=== PATIENT | male | born 1990 | race American Indian/Alaskan Native ===

== ENCOUNTER 2017-02-13 12:34 | Emergency (ER) | payer SELFPAY ==
[2017-02-13 13:10] VITALS: BP 129/73; PULSE 73; RESP 16; TEMP 98; O2SAT 97
--- NOTE | 2017-02-13 13:35 | C.PDOC ---
History Of Present Illness 26 year old male presents to ED with complaints of positionally and digitally reproducible parasternal chest pain for the past 3 weeks. 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 Pain is non-radiating. Denies shortness of breath, palpitations, or fever. No other complaints. Time Seen by Provider: 02/13/17 13:13 Chief Complaint (Nursing): Chest Pain History Per: Patient History/Exam Limitations: no limitations Onset/Duration Of Symptoms: Days (3 weeks) Current Symptoms Are (Timing): Still Present Quality: "Pain" Associated Symptoms: denies: Nausea, Dyspnea, Diaphoresis, Syncope Modifying Factors: None Exacerbating Factors: Movement Alleviating Factors: None Recent travel outside of the [place]: No Additional History Per: Patient Past Medical History Reviewed: Historical Data, Nursing Documentation, Vital Signs Vital Signs: Last Vital Signs Temp 98.0 F 02/13/17 13:07 Pulse 73 02/13/17 13:07 Resp 16 02/13/17 13:07 BP 129/73 02/13/17 13:07 Pulse Ox 97 02/13/17 13:36 Family History: States: Unknown Family Hx - Social History Hx Alcohol Use: No Hx Substance Use: No - Immunization History Hx Tetanus Toxoid Vaccination: Yes Hx Influenza Vaccination: No Hx Pneumococcal Vaccination: No Review Of Systems Except As Marked, All Systems Reviewed And Found Negative. Constitutional: Negative for: Fever, Chills Cardiovascular: Positive for: Chest Pain. Negative for: Palpitations, Edema, Light Headedness Respiratory: Negative for: Cough, Shortness of Breath Gastrointestinal: Negative for: Nausea, Vomiting Neurological: Negative for: Headache, Dizziness Physical Exam - Physical Exam Appears: Non-toxic, No Acute Distress Skin: Normal Color, Warm, Dry, No Rash Head: Atraumatic, Normacephalic Eye(s): bilateral: Normal Inspection Oral Mucosa: Moist Neck: Supple Chest: Symmetrical, No Deformity, Tenderness (positionally and digitally reproducible parasternal tenderness, no substernal tenderness), No Ecchymosis Cardiovascular: Rhythm Regular, No Murmur Respiratory: Normal Breath Sounds, No Rales, No Rhonchi Gastrointestinal/Abdominal: Soft, No Tenderness Extremity: Normal ROM, No Pedal Edema Neurological/Psych: Oriented x3, Normal Speech, Normal Cognition ED Course And Treatment ECG: Interpreted By Me ECG Rhythm: Sinus Rhythm ECG Interpretation: Normal Rate From EC O2 Sat by Pulse Oximetry: 97 Pulse Ox Interpretation: Normal Medical Decision Making Medical Decision Making: positionally and digitally reproducable b/l parasternal chest discomfort lifts heavy luggage as a business intelligence etl developer not changed with sitting/laying to consider pericarditis. Disposition Doctor Will See Patient In The: Office Counseled Patient/Family Regarding: Studies Performed, Diagnosis - Disposition Referrals: [facility] [Outside] [facility] [email or web address] [facility] [Outside] Disposition: HOME/ ROUTINE Disposition Time: 13:35 Condition: GOOD Additional Instructions: motrin 400-600 mg every 6 hours as needed for chest discomfort ice packs to chest 1/2 hour per hour, nothing hot, no hot showers. no heavy lifting for 1 week. Instructions: Costochondritis (ED) Forms: [facility] ([place]se) - Clinical Impression Clinical Impression: Chest discomfort - Scribe Statement The provider has reviewed the documentation as recorded by the Scribe Tramaine Hardin All medical record entries made by the Scribe were at my direction and personally dictated by me. I have reviewed the chart and agree that the record accurately reflects my personal performance of the history, physical exam, medical decision making, and the department course for this patient. I have also personally directed, reviewed, and agree with the discharge instructions and disposition.
--- NOTE | 2017-02-14 19:08 | CARD ---
APPROVED REPORT EKG Measurement Heart [id number] <Conclusion> Normal sinus rhythm Normal ECG
== END 2017-02-13 13:55 | disposition home or self-care (01) ==
LOC: C.ER 12:34
DX: R07.89 Other chest pain (principal)

== ENCOUNTER 2017-11-18 14:42 | Emergency (ER) | payer OTHER ==
[2017-11-18 14:55] VITALS: BMI 24.7
[2017-11-18 14:58] VITALS: BP 125/79; PULSE 62; RESP 18; TEMP 98.3; O2SAT 98
--- NOTE | 2017-11-18 15:25 | C.PDOC ---
History Of Present Illness 27 year old male presents to the ED for evaluation of swelling to his lower lip which began three days ago. Patient notes crusty yellow discharge from the area. Patient also reports 4-day history of penile discharge and admits to having unprotected sexual intercourse 3 weeks ago. Patient notes he was in [place] during this past week, from 11/12 to 11/17. He denies fever, chills. Time Seen by Provider: 11/18/17 15:21 Chief Complaint (Nursing): Abnormal Skin Integrity History Per: Patient History/Exam Limitations: no limitations Onset/Duration Of Symptoms: Days Current Symptoms Are (Timing): Still Present Additional History Per: Patient Past Medical History Reviewed: Historical Data, Nursing Documentation, Vital Signs Vital Signs: Last Vital Signs Temp 98.3 F 11/18/17 14:55 Pulse 62 11/18/17 14:55 Resp 18 11/18/17 14:55 BP 125/79 11/18/17 14:55 Pulse Ox 98 11/18/17 17:45 - Medical History PMH: No Chronic Diseases Surgical History: No Surg Hx Family History: States: Unknown Family Hx - Social History Hx Alcohol Use: Yes Hx Substance Use: No - Immunization History Hx Tetanus Toxoid Vaccination: Yes Hx Influenza Vaccination: No Hx Pneumococcal Vaccination: No Review Of Systems Constitutional: Negative for: Fever, Chills ENT: Positive for: Other (lip swelling with discharge ) Genitourinary: Positive for: Penile Discharge Physical Exam - Physical Exam Appears: Non-toxic, No Acute Distress Skin: Normal Color, Warm, Dry Head: Atraumatic, Normacephalic Eye(s): bilateral: Normal Inspection Oral Mucosa: Moist Lips: Swelling (lower lip), Lesions (honey-colored crusted lesions on inside of lower lip ) Throat: Normal, No Erythema, No Exudate Neck: Supple Lymphatic: No Adenopathy Chest: Symmetrical, No Deformity, No Tenderness Cardiovascular: Rhythm Regular, No Murmur Respiratory: Normal Breath Sounds, No Rales, No Rhonchi, No Wheezing Gastrointestinal/Abdominal: Soft, No Tenderness, No Guarding, No Rebound Back: CVA Tenderness (mild, left-sided ) Extremity: Normal ROM, Capillary Refill (less than 2 seconds ) Neurological/Psych: Oriented x3, Normal Speech, Normal Cognition ED Course And Treatment O2 Sat by Pulse Oximetry: 98 (on RA) Pulse Ox Interpretation: Normal Medical Decision Making Medical Decision Making: Impression: 27 year old male with lip swelling, penile discharge Plan: * GC/Chlamydia * urinalysis * Rocephin IM * Zithromax PO * reassess and disposition Progress: GC/Chlamydia and urinalysis ordered and reviewed. Rocephin IM and Zithromax PO given. 1735 pt given meds for sti in ed, will d/c with bactroban, f/u med clinic. Disposition Counseled Patient/Family Regarding: Studies Performed, Diagnosis, Need For Followup, Rx Given - Disposition Referrals: [facility] [Outside] Disposition: HOME/ ROUTINE Disposition Time: 17:36 Condition: GOOD Additional Instructions: Please drink increase fluids- your urine is concentrated. Tylenol or MOtrin for body aches. Apply Mupirocin ointment (Bactroban) to lip area 2 times a day. Cold compresses to lip to decrease swelling. Follow up in medical clinic in a few days. Recommend protected sex at al times. 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 - Scribe Statement The provider has reviewed the documentation as recorded by the Scribe (Kavita Hardin) All medical record entries made by the Scribe were at my direction and personally dictated by me. I have reviewed the chart and agree that the record accurately reflects my personal performance of the history, physical exam, medical decision making, and the department course for this patient. I have also personally directed, reviewed, and agree with the discharge instructions and disposition.
[2017-11-18] MEDS ORDERED: cefTRIAXone (Rocephin) 250 mg Inj IM STA (16:12)
[2017-11-18 16:51] LABS: URINE BILIRUBIN NEGATIVE (NEGATIVE); URINE BLOOD NEGATIVE (NEGATIVE); URINE CLARITY Clear (Clear); URINE COLOR Amber (YELLOW); URINE GLUCOSE (UA) NORMAL (Normal); URINE LEUKOCYTE ESTERASE NEG Leu/uL (Negative); URINE PROTEIN NEGATIVE (NEGATIVE)
== END 2017-11-18 17:53 | disposition home or self-care (01) ==
LOC: C.ER 14:42
DX: L01.00 Impetigo, unspecified (principal); N34.2 Other urethritis
CPT/HCPCS: 81001; 87491; 87591; 96372; 99283; J0696